=== PATIENT | female | born 2000 | race Caucasian/White ===

== ENCOUNTER 2019-12-29 21:23 | Emergency (ER) | payer SELFPAY ==
[2019-12-29 21:46] VITALS: TEMP 0; O2SAT 0
== END 2019-12-29 21:30 | disposition left against medical advice (07) ==
LOC: ER 21:23
DX: R11.10 Vomiting, unspecified (principal); Z53.21 Procedure and treatment not carried out due to patient leaving prior to being seen by health care provider